=== PATIENT | male | born 1960 | race Caucasian/White ===

== ENCOUNTER 2021-10-27 12:39 | Day surgery (SDC) | payer MEDICARE ==
[2021-10-27] MEDS ORDERED: Depo-Medrol 40 MG/ML IM ONE (12:40)
[2021-10-27] MEDS ORDERED: Sodium Chloride 0.9(Preservative Free) 10 ML IJ ONE (12:40)
[2021-10-27] MEDS ORDERED: DIPRIVAN 200 MG/20 ML IV ONE (14:17)
[2021-10-27] MEDS ORDERED: Lactated Ringers 1,000 ML IV ONE (14:52)
--- NOTE | 2021-10-27 17:08 | XRAY ---
Indication: Left L4-S1 transforaminal JALEN. Intraoperative fluoroscopy provided for 20 seconds. 3 digital spot images submitted for interpretation demonstrate posterior needle tips projecting over the expected left L4 and L5 nerve roots. Small amount of contrast injected for needle tip placement. Correlate with intraoperative findings/report.
--- NOTE | 2021-10-27 17:15 | XRAY ---
20 seconds of fluoroscopy was used in surgery for a left L4-S1 transforaminal JALEN.
== END 2021-10-27 14:38 | disposition home or self-care (01) ==
LOC: SDC-PAIN 12:39
PROVIDERS: ATTEND Psychiatry & Neurology Pain Medicine
DX: M54.16 Radiculopathy, lumbar region (principal); I10 Essential (primary) hypertension; Z79.899 Other long term (current) drug therapy
CPT/HCPCS: 64483; 64484; 72100; 77003; J1030; J2704; Q9966

== ENCOUNTER 2021-12-22 11:05 | Day surgery (SDC) | payer MEDICARE ==
[2021-12-22] MEDS ORDERED: Marcaine Mpf 0.5% Vial 30 Ml IJ ONE (11:06)
[2021-12-22] MEDS ORDERED: Depo-Medrol 40 MG/ML IM ONE (11:06)
[2021-12-22] MEDS ORDERED: Lactated Ringers 1,000 ML IV ONE (12:47)
[2021-12-22] MEDS ORDERED: DIPRIVAN 200 MG/20 ML IV ONE (12:50)
[2021-12-22] MEDS ORDERED: Xylocaine-Mpf 2% 5 Ml Vial ONE (12:51)
--- NOTE | 2021-12-22 13:35 | XRAY ---
Indication: Left SI joint injection. Intraoperative fluoroscopy provided for 12 seconds. 2 digital spot image submitted for interpretation demonstrate posterior needle tip projecting over the left SI joint. Correlate with intraoperative findings/report.
--- NOTE | 2021-12-22 13:35 | XRAY ---
12 seconds fluoroscopy time in surgery for injection of the left SI joint.
== END 2021-12-22 13:12 | disposition home or self-care (01) ==
LOC: SDC-PAIN 11:05
PROVIDERS: ATTEND Psychiatry & Neurology Pain Medicine
DX: M46.1 Sacroiliitis, not elsewhere classified (principal); Z79.899 Other long term (current) drug therapy
CPT/HCPCS: 27096; 72202; 77002; G0260; J1030; J2704

== ENCOUNTER 2022-02-09 14:25 | Day surgery (SDC) | payer MEDICARE ==
[2022-02-09] MEDS ORDERED: Depo-Medrol 40 MG/ML IM ONE (14:26)
[2022-02-09] MEDS ORDERED: Sodium Chloride 0.9(Preservative Free) 10 ML IJ ONE (14:26)
[2022-02-09] MEDS ORDERED: Versed 2 MG/2 ML Injection ONE (15:12)
[2022-02-09] MEDS ORDERED: Lactated Ringers 1,000 ML IV ONE (16:45)
[2022-02-09] MEDS ORDERED: DIPRIVAN 200 MG/20 ML IV ONE (16:50)
[2022-02-09] MEDS ORDERED: MORPHINE SULFATE 2 MG INJ ONE ×2 (17:03→17:14)
--- NOTE | 2022-02-09 19:02 | XRAY ---
Indication: Caudal JALEN. Intraoperative fluoroscopy provided for 21 seconds. 3 digital spot images submitted for interpretation demonstrates caudal needle tip projecting mid sacrum. Small amount of contrast injected for needle tip placement. Correlate with intraoperative findings/report.
--- NOTE | 2022-02-10 08:55 | XRAY ---
21 seconds fluoroscopy time in surgery for caudal JALEN.
== END 2022-02-09 17:26 | disposition home or self-care (01) ==
LOC: SDC-PAIN 14:25
PROVIDERS: ATTEND Psychiatry & Neurology Pain Medicine
DX: M54.16 Radiculopathy, lumbar region (principal); Z79.899 Other long term (current) drug therapy
CPT/HCPCS: 62323; 72220; 77003; J1030; J2250; J2270; J2704; Q9966